=== PATIENT | female | born 1990 | race Caucasian/White ===

== ENCOUNTER → 2016-11-29 | Outpatient (CLI) | payer OTHER ==
[~2016-11-29] MED LIST: ALBU8.5H INH; BUDE10.22 INH; HYDR-3989 PO
--- NOTE | 2016-11-29 14:43 | DI ---
Indication: ITS.REASON: R10.9 ABD PAIN PROCEDURE: US TRANSVAGINAL (NON-OB): Encounter: Initial Comparison: None FINDINGS: Transvaginal and transabdominal pelvic imaging was performed. The uterus measures 7.9 x 4.2 x 4.6 cm. The parenchyma is homogeneous without fibroids. Intrauterine device appears appropriately positioned causing shadowing of the endometrial stripe. Both ovaries are identified. Simple cyst in the right ovary measuring 2.2 x 1.6 x 1.4 cm in size. This is anechoic without internal vascularity. The right ovary measures 4.1 x 2.5 x 2 cm. The left ovary appears normal and measures 3.4 x 1.5 x 1.8 cm. There are no abnormal adnexal masses detected. Normal Doppler flow to both ovaries. IMPRESSION: Unremarkable pelvic sonogram. .
== END ==
LOC: IMA 13:19
PROVIDERS: ATTEND Family Medicine
DX: R10.9 Unspecified abdominal pain (principal)